=== PATIENT | female | born 1950 | race Caucasian/White ===

== ENCOUNTER 2022-06-30 17:00 | Emergency (ER) | payer SELFPAY ==
[~2022-06-30] VITALS: Ht 165.1 cm; Wt 62.1 kg
--- NOTE | 2022-06-30 17:18 | NUR ---
C/O LEFT KNEE AND RIGHT HAND PAIN S/P GLF 1 WEEK AGO
--- NOTE | 2022-06-30 17:29 | NUR ---
library media technician at bedside.
--- NOTE | 2022-06-30 18:30 | NUR ---
Ulnar gutter splint placed by EMT.
--- NOTE | 2022-06-30 18:35 | NUR ---
Felipe bandage placed by EMT at L knee.
--- NOTE | 2022-06-30 18:50 | NUR ---
Patient discharged to home in stable condition. Written and verbal after care instructions given. Patient verbalizes understanding of instruction.
[2022-06-30 19:01] VITALS: BP 162/88
== END 2022-06-30 19:03 | disposition home or self-care (01) ==
LOC: ER 17:05
DX: S62.111A Displaced fracture of triquetrum [cuneiform] bone, right wrist, initial encounter for closed fracture (principal); S80.02XA Contusion of left knee, initial encounter; K21.9 Gastro-esophageal reflux disease without esophagitis; W18.30XA Fall on same level, unspecified, initial encounter; Y93.89 Activity, other specified; Y92.89 Other specified places as the place of occurrence of the external cause; Y99.8 Other external cause status
CPT/HCPCS: 73110; 73130-TC; 73564-TC; 73590-TC